=== PATIENT | male | born 1995 | race Caucasian/White ===

== ENCOUNTER 2018-09-08 06:25 | Emergency (ER) | payer OTHER ==
[2018-09-08 06:49] VITALS: BP 108/72; PULSE 68; TEMP 96.8; BMI 18.8
--- NOTE | 2018-09-08 07:17 | PDOC ---
History of Present Illness - General Chief Complaint: Pain Stated Complaint: ABD PAIN Time Seen by Provider: 09/08/18 06:54 History Source: Patient Exam Limitations: No Limitations, Other (pt very anxious, but answering questions appropriately.) - History of Present Illness Initial Comments: Pt is a 23 yo M, with no significant PMH, who is presenting with LLQ abdominal pain, which has been going on for ~1.5 months. Pt states the pain is "crampy" in nature, is exacerbated by caffeine/fried foods and sleeping on his L side, and is sometimes relieved with bowel movements. Pt has noticed "red flecks" in his stool, but also noted that he ate red peppers yesterday. Pt had syncopal episode last week in [place] after feeling the LLQ pain, because he got "worked up and thought [he] was going to ". He has had regular, solid BMs, but has been "straining" to go last night. Pt denies any headache, vision changes, chest pain, SOB, nausea/vomiting, diarrhea/constipation, or leg swelling. Pt PCP Dr. Onofre Glover, who has prescribed pt 40 mg Omeprazole, with no relief. Pt has GI appointment on Sep 15, which I advised him to keep. Pt denies cigarette and other drug use, and admits to occasional alcohol use, which does not exacerbate the pain. Pt denies recent travel and other sick contacts. 09/08/18 07:39 Past History - Travel Traveled outside of the country in the last 30 days: No Close contact w/someone who was outside of country & ill: No - Past Medical History Allergies/Adverse Reactions: Allergies Allergy/AdvReac Type Severity Reaction Status Date / Time No Known Allergies Allergy Verified 09/08/18 06:42 Home Medications: Ambulatory Orders NK [No Known Home Medication] 09/08/18 Diabetes: No HTN: No Hypercholesterolemia: No - Suicide/Smoking/Psychosocial Hx Smoking History: Never smoked Have you smoked in the past 12 months: No Information on smoking cessation initiated: No Hx Alcohol Use: Yes (Occasional) Drug/Substance Use Hx: No Review of Systems - Review of Systems Able to Perform ROS?: Yes Is the patient limited Mongolian proficient: No Constitutional: Yes: Weight Stable. No: Chills, Diaphoresis, Fever, Loss of Appetite, Malaise, Night Sweats, Weakness HEENTM: No: Blurred Vision, Recent change in vision, Double Vision, Nose Congestion, Hearing Loss, Throat Swelling, Difficulty Swallowing Respiratory: No: Cough, Orthopnea, Shortness of Breath Cardiac (ROS): Yes: Syncope (syncopal episode in [place] last week after feeling pain and anxiety). No: Chest Pain, Edema, Irregular Heart Rate, Lightheadedness , Palpitations, Chest Tightness ABD/GI: Yes: Abdominal cramping. No: Abdominal Distended, Abd. Pain w/ defecation, Blood Streaked Bowels, Constipated, Diarrhea, Difficulty Swallowing , Nausea, Poor Appetite, Poor Fluid Intake, Rectal Bleeding, Vomiting, Indigestion, Tarry Stools : No: Burning, Dysuria, Discharge, Frequency, Flank Pain, Hematuria, Incontinence, Pain, Urgency Musculoskeletal: No: Back Pain, Joint Pain, Muscle Weakness Integumentary: No: Bruising, Erythema, Rash Neurological: No: Headache, Numbness, Seizure, Weakness, Unsteady Gait, Ataxia, Dizziness Psychiatric: No: Sleep Pattern Change, Change in Appetite Endocrine: No: Increased Urine, Change in Weight Hematologic/Lymphatic: No: Anemia, Blood Clots, Easy Bleeding All Other Systems: Reviewed and Negative *Physical Exam - Vital Signs Last Vital Signs Temp Pulse Resp BP Pulse Ox 96.8 F L 68 16 108/72 99 09/08/18 06:25 09/08/18 06:25 09/08/18 06:25 09/08/18 06:25 09/08/18 06:25 - Physical Exam General Appearance: Yes: Nourished, Appropriately Dressed, Thin. No: Apparent Distress (vitals stable, pt lying comfortably) HEENT: positive: EOMI, BRENNON, Normal ENT Inspection, Normal Voice, Symmetrical, Pharynx Normal, Hearing Grossly Normal. negative: Scleral Icterus (R), Scleral Icterus (L), Pharyngeal Erythema, Tonsillar Exudate, Tonsillar Erythema, Rhinorrhea Neck: positive: Trachea midline, Normal Thyroid, Supple. negative: Tender, Rigid, Lymphadenopathy (R), Lymphadenopathy (L) Respiratory/Chest: positive: Lungs Clear, Normal Breath Sounds. negative: Chest Tender, Respiratory Distress, Accessory Muscle Use, Crackles, Wheezing Cardiovascular: positive: Regular Rhythm, Regular Rate, S1, S2. negative: Edema , JVD, Murmur Vascular Pulses: Carotid (R): 4+, Carotid (L): 4+ Gastrointestinal/Abdominal: positive: Normal Bowel Sounds, Flat, Soft, Guarding (Guarding when palpating LLQ, no tenderness or rebound.). negative: Tender, Organomegaly, Pulsatile Mass, Distended, Rebound, Tenderness, Hernia, Hepatomegaly, Spleenomegaly Male Genitalia: positive: normal genitalia. negative: discharge, testicular tenderness, testicular mass, epididymus tender, inguinal hernia Rectal Exam: positive: deferred Lymphatic: negative: Adenopathy, Tenderness Musculoskeletal: positive: Normal Inspection. negative: CVA Tenderness Extremity: positive: Normal Capillary Refill, Normal Inspection, Normal Range of Motion, Pelvis Stable. negative: Tender, Pedal Edema Integumentary: positive: Normal Color, Dry, Warm. negative: Erythema, Jaundice , Clammy, Diaphoresis, Rash Neurologic: positive: transmissions systems operator II-XII NML intact, Fully Oriented, Alert, Normal Mood/ Affect, Normal Response, Motor Strength 5/5 Medical Decision Making - Medical Decision Making Pt was seen at bedside, also will be seen by attending Dr. Tavarez. Pt presenting with LLQ abdominal pain, which has been going on for ~1.5 months. Pt states the pain is "crampy" in nature, is exacerbated by caffeine/fried foods and sleeping on his L side, and is sometimes relieved with bowel movements. Pt has noticed "red flecks" in his stool, but also noted that he ate red peppers yesterday. Pt had syncopal episode last week in [place] after feeling the LLQ pain, because he got "worked up and thought [he] was going to ". Pt has GI appointment on Sep 15, which I advised him to keep. PE showed very anxious pt, vitals stable. Pt guarding during abdominal exam, no abdominal tenderness or rebound. Testicular exam WNL with no tenderness. No CVA tenderness. Considering IBS vs kidney stone. Considered testicular torsion, no testicular tenderness or complaints of pain. Ordered UA to r/o blood. Will continue to monitor for need of further work-up ( CT abd/pelvis, blood work). Will continue to reassess pt and monitor for symptomatic improvement. 09/08/18 07:21 Pt able to provide urine sample, sent to lab. Will provide return to work/school note, as pt missed school this AM. 09/08/18 08:42 UA negative for blood or leuk esterase. Considering normal UA and benign PE, pt can be discharged to home with follow- up. Pt advised to follow-up with PCP in 1-2 days and his GI appt Sep 15. Strict return precautions provided with pt understanding. Pt feeling less abdominal pain, and less abdominal tenderness with exam. Pt able to tolerate PO water before leaving dept. 09/08/18 08:57 *DC/Admit/Observation/Transfer Diagnosis at time of Disposition: LLQ abdominal pain - Discharge Dispostion Disposition: HOME Condition at time of disposition: Good Decision to Admit order: No - Referrals Referrals: Onofre Glover MD [Primary Care Provider] - - Patient Instructions Printed Discharge Instructions: DI for Abdominal Pain-Adult Additional Instructions: You were seen in the ER today for abdominal cramping. The results of your urine test were normal. Please follow-up with your primary care doctor within 1-2 days , and keep your GI appointment on September 15, to discuss your visit and make sure your symptoms have improved. Please return to the ER if you have any worsening pain, blood in your stool, development of fevers/chills, loss of consciousness, inability to tolerate food or fluids, or any other concerns. Please avoid your trigger foods, including caffeine and fatty foods. - Post Discharge Activity Forms/Work/School Notes: Back to School
--- NOTE | 2018-09-08 07:28 | PDOC ---
Attending Attestation - Resident Resident Name: Dang Abbasi - ED Attending Attestation I have performed the following: I have examined & evaluated the patient, The case was reviewed & discussed with the resident, I agree w/resident's findings & plan, Exceptions are as noted - HPI HPI: 09/08/18 07:26 23y M no sig pmhx presents with LLQ abd pain x 1.5 month, hsa been gradually worsening, crampy in nature, radiates to the LUQ/flank and seems to worse in the evening when he is lying down and getting ready to go to bed as well as when he drinks red bulls and . Pt notes the pain also seems to be releived with BMs. denies any fever/chills, nausea/vomiting, diarrhea, melena, constipation, cp, back pain, dysria, hematuria, testicular pain. Pt states he is otherwise eating/drinking ok. Pt had seen his PMD and was referred to GI next week. Was started on omeprazole and took it this morning without significant improvemnt. - Physicial Exam PE: 09/08/18 09:40 GENERAL: The patient is awake, alert, and fully oriented, Nontoxic - in no acute distress. HEART: Regular rate and rhythm, normal S1 and S2 without murmur, rub or gallop. PULM: CTA b/l ABDOMEN: Soft, nontender, No guarding, no rebound. No CVA tenderness EXTREMITIES: Normal range of motion, no edema. - Medical Decision Making 09/08/18 09:41 Sarah neg for infection or hematuriat t osuggest UTI/kidney stones no systemic complaints or focal tenderness on exam to suggest diverticulitis/ cholecystiits/appendicitis will defer labs and have pt fu with GI asscheduled pt notes his pain is better will dc with outpatient fu return preautions were discussed
[2018-09-08 08:44] LABS: URINE APPEARANCE CLEAR; URINE BILIRUBIN NEGATIVE (<2.0 mg/dL); URINE COLOR YELLOW; URINE GLUCOSE (UA) NEGATIVE (NEGATIVE); URINE KETONE NEGATIVE (NEGATIVE); URINE LEUK ESTERASE NEGATIVE (NEGATIVE); URINE NITRITE NEGATIVE (NEGATIVE); URINE PROTEIN NEGATIVE (NEGATIVE)
[2018-09-08] MEDS ORDERED: diazePAM 2 MG TABLET ONE (08:58)
[2018-09-08] MEDS: diazePAM 2 MG TABLET PO ONE ×2 (08:58→09:00)
== END 2018-09-08 09:05 | disposition home or self-care (01) ==
LOC: JER 06:25
DX: R10.32 Left lower quadrant pain (principal)
CPT/HCPCS: 81003; 87086; 99282-25